=== PATIENT | male | born 1985 | race Caucasian/White ===

== ENCOUNTER → 2018-09-05 | Outpatient (CLI) | payer BC | END | disposition home or self-care (01) | LOC: U/S 12:22 | DX: R94.5 Abnormal results of liver function studies (principal) | CPT/HCPCS: 76700 ==

== ENCOUNTER 2019-06-04 08:09 | Emergency (ER) | payer BC | END 2019-06-04 08:31 | disposition home or self-care (01) | LOC: FTE 08:09 | DX: L03.032 Cellulitis of left toe (principal) | CPT/HCPCS: 99283 ==